=== PATIENT | female | born 1995 | race Caucasian/White ===

== ENCOUNTER 2017-03-25 08:18 | Emergency (ER) | payer BC, OTHER ==
[2017-03-25 08:58] VITALS: BP 121/78
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
--- NOTE | 2017-03-25 09:40 | CT ---
CT cervical spine Technique: Multiple axial sections were obtained from above the C1 inferiorly to the bottom of T1. Reconstructed sagittal and coronal images were reviewed. Comparison: No previous cervical spine imaging. Findings: Posterior skull base is intact. Vertebral body heights and disc spaces are maintained. Vertebral bodies and posterior arches are intact with no fracture being seen. No bony central or bony neural foraminal stenosis is seen. No abnormal subluxation is seen on the reconstructed sagittal images. Impression: 1. Nothing acute is identified on CT study of the cervical spine. Diagnostic code #1
--- NOTE | 2017-03-25 09:42 | CT ---
Head CT Technique: Multiple axial sections through the brain were obtained. Intravenous contrast was not utilized. Comparison: No previous intracranial imaging. Findings: Ventricles along with basal cisterns and sulci over the convexities appear within normal limits for the patient's age. No abnormal parenchymal densities are seen. No evidence of intracranial hemorrhage. No midline shift or mass effect is seen. Paranasal sinuses that are seen appear clear. No acute calvarial abnormality is appreciated. Impression: 1. No acute intracranial abnormality is identified on noncontrast head CT exam. Diagnostic code #1
== END 2017-03-25 10:00 | disposition home or self-care (01) ==
LOC: JD.ED 08:18
DX: S16.1XXA Strain of muscle, fascia and tendon at neck level, initial encounter (principal); S09.90XA Unspecified injury of head, initial encounter; F17.210 Nicotine dependence, cigarettes, uncomplicated; Z88.0 Allergy status to penicillin; V47.5XXA Car driver injured in collision with fixed or stationary object in traffic accident, initial encounter
CPT/HCPCS: 70450; 70450-26; 72125; 72125-26; 99283; 99284-25

== ENCOUNTER 2020-10-24 16:04 | Inpatient (IN) | payer BC, MEDICAID ==
[2020-10-24] MEDS ORDERED: Sodium Chloride 0.9% 10 ML Syringe FLUSH PRN (17:23)
[2020-10-24] MEDS ORDERED: Nalbuphine 10 MG/1 ML Vial IVPUSH PRN (17:23)
[2020-10-24] MEDS ORDERED: Acetaminophen 325 MG Tab PO PRN (17:24)
[2020-10-24] MEDS ORDERED: ceFAZolin 2 GM in Premix Bag 1 BAG IV ONE (17:24)
[2020-10-24] MEDS ORDERED: Calcium Carbonate 500 MG Tab.Chew PO PRN (17:24)
[2020-10-24] MEDS ORDERED: Ondansetron 4 MG/2 ML SDV IVPUSH PRN (17:24)
[2020-10-24] MEDS ORDERED: Oxytocin/Lactated Ringers 10 UNIT/1,000 ML BAG IV SCH ×2 (17:30→21:45)
[2020-10-24] MEDS: Lactated Ringers 1,000 ML IV SCH ×2 (17:47→20:39)
--- NOTE | 2020-10-24 19:57 | PCM.PNLD ---
Labor Progress Note - VS & Meds Vital Signs: Last Vital Signs Temp 36.6 C 10/24/20 16:23 Pulse 84 10/24/20 16:23 Resp 16 10/24/20 16:23 BP 116/59 L 10/24/20 16:23 Pulse Ox 97 10/24/20 16:23 Active Medications: Current Medications Acetaminophen (Acetaminophen 325 Mg Tab) 650 mg PO Q4H PRN PRN Reason: Pain (Mild 1-3) and fever Calcium Carbonate/Glycine (Calcium Carbonate 500 Mg Tab.Chew) 1,000 mg PO Q2H PRN PRN Reason: Indigestion Lactated Ringer's (Ringers, Lactated) 1,000 mls @ 100 mls/hr IV ASDIRECTED BHARATH Last Admin: 10/24/20 17:47 Dose: 100 mls/hr Documented by: Cefazolin Sodium/Dextrose 1 gm (/ Premix) 50 mls @ 100 mls/hr IV Q8HR BHARATH Oxytocin/Lactated Ringer's (Pitocin In Lr 10 Units/1,000 Ml) 10 unit in 1,000 mls @ 500 mls/hr IV .CONTINUOUS BHARATH Nalbuphine HCl (Nalbuphine 10 Mg/1 Ml Vial) 10 mg IVPUSH Q2H PRN PRN Reason: Pain Ondansetron HCl (Ondansetron 4 Mg/2 Ml Sdv) 4 mg IVPUSH Q4H PRN PRN Reason: Nausea/Vomiting Sodium Chloride (Sodium Chloride 0.9% 10 Ml Syringe) 10 ml FLUSH ASDIRECTED PRN PRN Reason: Keep Vein Open Discontinued Medications Cefazolin Sodium/Dextrose 2 gm (/ Premix) 50 mls @ 100 mls/hr IV ONETIME ONE Stop: 10/24/20 17:53 Last Admin: 10/24/20 17:47 Dose: 100 mls/hr Documented by: - Monitoring Strip Review: Category I - Vaginal Exam Dilation (cm): 5 Effacement (Percent): 80 Station: -2 - Labor Progress (Free Text) Labor Progress: Term labor. AROM clear fluid.
[2020-10-24] MEDS ORDERED: fentaNYL 100 MCG/2 ML SDV EPIDUR PRN (20:54)
[2020-10-24] MEDS ORDERED: diphenhydrAMINE 50 MG/ML SDV IVPUSH PRN (20:54)
[2020-10-24] MEDS ORDERED: ePHEDrine 50 MG/ML SDV IVPUSH PRN (20:54)
[2020-10-24] MEDS ORDERED: Bupivacaine/fentaNYL/NS 100 ML Bag EPIDUR PRN (20:54)
--- NOTE | 2020-10-24 21:24 | PCM.PREANE ---
Preanesthetic Assessment - Procedure Proposed Procedure: Epidural - Anesthesia/Transfusion/Family Hx Anesthesia History: Prior Anesthesia Without Reaction Family History of Anesthesia Reaction: No Transfusion History: No Prior Transfusion(s) - Review of Systems General: Fatigue Pulmonary: No Symptoms Cardiovascular: No Symptoms Gastrointestinal: Abdominal Pain (labor) Neurological: No Symptoms Other: Reports: None - Physical Assessment Vital Signs: Last Vital Signs Temp 36.6 C 10/24/20 16:23 Pulse 84 10/24/20 16:23 Resp 16 10/24/20 16:23 BP 116/59 L 10/24/20 16:23 Pulse Ox 97 10/24/20 16:23 Height: 1.7 m Weight: 121.427 kg ASA Class: 2 Mental Status: Alert & Oriented x3 Airway Class: Mallampati = 2 Dentition: Reports: Normal Dentition Thyro-Mental Finger Breadths: 3 Mouth Opening Finger Breadths: 2 ROM/Head Extension: Full Lungs: Clear to Auscultation, Normal Respiratory Effort Cardiovascular: Regular Rate, Regular Rhythm - Lab Values: Laboratory Last Values WBC 10.97 K/mm3 (3.98-10.04) H 10/24/20 17:40 RBC 4.03 M/mm3 (3.98-5.22) 10/24/20 17:40 Hgb 11.8 gm/dl (11.2-15.7) 10/24/20 17:40 Hct 35.5 % (34.1-44.9) 10/24/20 17:40 MCV 88.1 fl (79.4-94.8) 10/24/20 17:40 MCH 29.3 pg (25.6-32.2) 10/24/20 17:40 MCHC 33.2 g/dl (32.2-35.5) 10/24/20 17:40 RDW Std Deviation 41.0 fL (36.4-46.3) 10/24/20 17:40 Plt Count 257 K/mm3 (182-369) 10/24/20 17:40 MPV 11.3 fl (9.4-12.3) 10/24/20 17:40 Neut % (Auto) 69.8 % (34.0-71.1) 10/24/20 17:40 Lymph % (Auto) 21.8 % (19.3-51.7) 10/24/20 17:40 [place] % (Auto) 6.5 % (4.7-12.5) 10/24/20 17:40 Eos % (Auto) 1.3 (0.7-5.8) 10/24/20 17:40 Baso % (Auto) 0.2 % (0.1-1.2) 10/24/20 17:40 Neut # (Auto) 7.67 K/mm3 (1.56-6.13) H 10/24/20 17:40 Lymph # (Auto) 2.39 K/mm3 (1.18-3.74) 10/24/20 17:40 [place] # (Auto) 0.71 K/mm3 (0.24-0.36) H 10/24/20 17:40 Eos # (Auto) 0.14 K/mm3 (0.04-0.36) 10/24/20 17:40 Baso # (Auto) 0.02 K/mm3 (0.01-0.08) 10/24/20 17:40 SARS-CoV-2 RNA (ANASTASIA) Negative (NEGATIVE) 10/24/20 17:44 Blood Type A POSITIVE 10/24/20 17:40 Gel Antibody Screen Negative 10/24/20 17:40 - Allergies Allergies/Adverse Reactions: Allergies Allergy/AdvReac Type Severity Reaction Status Date / Time Penicillins Allergy Severe Hives Verified 10/24/20 16:21 - Anesthesia Plan Pre-Op Medication Ordered: None - Acknowledgements Anesthesia Type Planned: Epidural Pt an Appropriate Candidate for the Planned Anesthesia: Yes Alternatives and Risks of Anesthesia Discussed w Pt/Guardian: Yes Pt/Guardian Understands and Agrees with Anesthesia Plan: Yes PreAnesthesia Questionnaire HEENT History: Reports: Impaired Vision Gastrointestinal History: Reports: GERD 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 has been given medications to"kick start" her menses but they have not yet started Neurological History: Reports: Other (See Below) Other Neuro History: Pseudotumor-causes vision loss, on medication Psychiatric History: Reports: Anxiety, Depression - Past Surgical History HEENT Surgical History: Reports: Tonsillectomy Neurological Surgical History: Reports: None - SUBSTANCE USE Tobacco Use Status *Q: Former Tobacco User Tobacco Use Within Last Twelve Months: No Second Hand Smoke Exposure: Yes Recreational Drug Use History: No - HOME MEDS Home Medications: Home Meds Vits #93/Iron Fum/FA [ Formula Tablet] 1 tab PO DAILY 10/24/20 [History] acetaZOLAMIDE [Diamox] 500 mg PO DAILY 10/24/20 [History] - CURRENT (IN HOUSE) MEDS Current Meds: Current Medications Acetaminophen (Acetaminophen 325 Mg Tab) 650 mg PO Q4H PRN PRN Reason: Pain (Mild 1-3) and fever Calcium Carbonate/Glycine (Calcium Carbonate 500 Mg Tab.Chew) 1,000 mg PO Q2H PRN PRN Reason: Indigestion Diphenhydramine HCl (Diphenhydramine 50 Mg/Ml Sdv) 25 mg IVPUSH Q6H PRN PRN Reason: pruritis Ephedrine Sulfate (Ephedrine 50 Mg/Ml Sdv) 5 mg IVPUSH ASDIRECTED PRN PRN Reason: Hypotension Fentanyl (Fentanyl 100 Mcg/2 Ml Sdv) 100 mcg EPIDUR Q3H PRN PRN Reason: Pain Last Admin: 10/24/20 21:02 Dose: 100 mcg Documented by: Fentanyl/Bupivacaine HCl (Bupivacaine/Fentanyl/Ns 100 Ml Bag) 100 ml EPIDUR ASDIRECTED PRN PRN Reason: Pain Last Admin: 10/24/20 21:12 Dose: 100 ml Documented by: Lactated Ringer's (Ringers, Lactated) 1,000 mls @ 100 mls/hr IV ASDIRECTED BHARATH Last Admin: 10/24/20 20:39 Dose: 100 mls/hr Documented by: Cefazolin Sodium/Dextrose 1 gm (/ Premix) 50 mls @ 100 mls/hr IV Q8HR BHARATH Oxytocin/Lactated Ringer's (Pitocin In Lr 10 Units/1,000 Ml) 10 unit in 1,000 mls @ 500 mls/hr IV .CONTINUOUS BHARATH Nalbuphine HCl (Nalbuphine 10 Mg/1 Ml Vial) 10 mg IVPUSH Q2H PRN PRN Reason: Pain Ondansetron HCl (Ondansetron 4 Mg/2 Ml Sdv) 4 mg IVPUSH Q4H PRN PRN Reason: Nausea/Vomiting Sodium Chloride (Sodium Chloride 0.9% 10 Ml Syringe) 10 ml FLUSH ASDIRECTED PRN PRN Reason: Keep Vein Open Discontinued Medications Cefazolin Sodium/Dextrose 2 gm (/ Premix) 50 mls @ 100 mls/hr IV ONETIME ONE Stop: 10/24/20 17:53 Last Admin: 10/24/20 17:47 Dose: 100 mls/hr Documented by:
[2020-10-24] MEDS ORDERED: ceFAZolin 1 GM in Premix Bag 1 BAG IV SCH (22:00)
--- NOTE | 2020-10-25 01:27 | PCM.LDHP ---
L&D History of Present Illness - General Date of Service: 10/24/20 Admit Problem/Dx: Patient Status Order with Admit Dx/Problem 10/24/20 17:24 Patient Status [ADT] Routine Admission Diagnosis/Problem Admission Diagnosis/Problem - History of Present Illness Introduction:: 25 year old female at 38w3d presents in active labor. care in [place] initially transferred to Dr. Laya Santacruz in [place]. Called [place] and was told to use her judgement if she could travel there for delivery. Presented and was 5 cm dilated with regular painful contractions. Care complicated by question of pseudotumor cerebri initially. Was on diamox which was stopped and headaches did not persists. Recommendation was no need for medication, no contradiction to vaginal deliver or regional anesthesia. 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 has been given medications to"kick start" her menses but they have not yet started Neurological History: Reports: Other (See Below) Other Neuro History: Pseudotumor-causes vision loss, on medication Psychiatric History: Reports: Anxiety, Depression - Past Surgical History HEENT Surgical History: Reports: Tonsillectomy Neurological Surgical History: Reports: None Social & Family History - Family History Family Medical History: No Pertinent Family History - Tobacco Use Tobacco Use Status *Q: Former Tobacco User Years of Tobacco use: 4 Packs/Tins Daily: 0.5 Used Tobacco, but Quit: Yes Month/Year Tobacco Last Used: 01/2020 Second Hand Smoke Exposure: Yes - Caffeine Use Caffeine Use: Reports: Coffee - Recreational Drug Use Recreational Drug Use: No H&P Review of Systems - Review of Systems: Review Of Systems: See Below General: Reports: No Symptoms HEENT: Reports: No Symptoms Pulmonary: Reports: No Symptoms Cardiovascular: Reports: No Symptoms Gastrointestinal: Reports: No Symptoms Genitourinary: Reports: No Symptoms Musculoskeletal: Reports: No Symptoms Skin: Reports: No Symptoms Psychiatric: Reports: No Symptoms Neurological: Reports: No Symptoms Hematologic/Lymphatic: Reports: No Symptoms Immunologic: Reports: No Symptoms L&D Exam - Exam Exam: See Below - Vital Signs Vital Signs: Last Vital Signs Temp 36.6 C 10/24/20 16:23 Pulse 84 10/24/20 16:23 Resp 16 10/24/20 16:23 BP 116/59 L 10/24/20 16:23 Pulse Ox 97 10/24/20 16:23 Weight: 121.427 kg - OB Specific Contraction Intensity: Moderate Movement: Active Heart Tones: Present Heart Rate (FHR) Variability: Moderate (6-25 bmp) Presentation: Vertex - Medina Score Medina Score Cervix Position: Anterior Medina Score Consistency: Soft Medina Score Effacement: 51-70% Medina Score Dilation: > 5 cm Medina Score 's Station: -2 Medina Score Total: 10 - Exam General: Alert, Oriented HEENT: PERRLA, Conjunctiva Clear, EACs Clear, EOMI, Hearing Intact, Mucosa Moist & [place], Nares Patent, Normal Nasal Septum, Posterior Pharynx Clear, TMs Clear Neck: Supple, Trachea Midline Lungs: Clear to Auscultation, Normal Respiratory Effort Cardiovascular: Regular Rate, Regular Rhythm GI/Abdominal Exam: Normal Bowel Sounds, Soft, Non-Tender, No Organomegaly, No Distention, No Abnormal Bruit, No Mass, Pelvis Stable Back Exam: Normal Inspection, Full Range of Motion Extremities: Normal Inspection, Normal Range of Motion, Non-Tender, No Pedal Edema, Normal Capillary Refill Neurological: Reflexes Equal Bilateral Psychiatric: Alert, Normal Affect, Normal Mood - Patient Data Lab Results Last 24 hrs: Laboratory Results - last 24 hr 10/24/20 10/24/20 10/24/20 Range/Units 17:40 17:40 17:40 WBC 10.97 H (3.98-10.04) K/mm3 RBC 4.03 (3.98-5.22) M/mm3 Hgb 11.8 (11.2-15.7) gm/dl Hct 35.5 (34.1-44.9) % MCV 88.1 (79.4-94.8) fl MCH 29.3 (25.6-32.2) pg MCHC 33.2 (32.2-35.5) g/dl RDW Std Deviation 41.0 (36.4-46.3) fL Plt Count 257 (182-369) K/mm3 MPV 11.3 (9.4-12.3) fl Neut % (Auto) 69.8 (34.0-71.1) % Lymph % (Auto) 21.8 (19.3-51.7) % [place] % (Auto) 6.5 (4.7-12.5) % Eos % (Auto) 1.3 (0.7-5.8) Baso % (Auto) 0.2 (0.1-1.2) % Neut # (Auto) 7.67 H (1.56-6.13) K/mm3 Lymph # (Auto) 2.39 (1.18-3.74) K/mm3 [place] # (Auto) 0.71 H (0.24-0.36) K/mm3 Eos # (Auto) 0.14 (0.04-0.36) K/mm3 Baso # (Auto) 0.02 (0.01-0.08) K/mm3 RPR Non-reactive (NONREACTIVE) SARS-CoV-2 RNA (ANASTASIA) (NEGATIVE) Blood Type A POSITIVE Gel Antibody Screen Negative 10/24/20 Range/Units 17:44 WBC (3.98-10.04) K/mm3 RBC (3.98-5.22) M/mm3 Hgb (11.2-15.7) gm/dl Hct (34.1-44.9) % MCV (79.4-94.8) fl MCH (25.6-32.2) pg MCHC (32.2-35.5) g/dl RDW Std Deviation (36.4-46.3) fL Plt Count (182-369) K/mm3 MPV (9.4-12.3) fl Neut % (Auto) (34.0-71.1) % Lymph % (Auto) (19.3-51.7) % [place] % (Auto) (4.7-12.5) % Eos % (Auto) (0.7-5.8) Baso % (Auto) (0.1-1.2) % Neut # (Auto) (1.56-6.13) K/mm3 Lymph # (Auto) (1.18-3.74) K/mm3 [place] # (Auto) (0.24-0.36) K/mm3 Eos # (Auto) (0.04-0.36) K/mm3 Baso # (Auto) (0.01-0.08) K/mm3 RPR (NONREACTIVE) SARS-CoV-2 RNA (ANASTASIA) Negative (NEGATIVE) Blood Type Gel Antibody Screen Result Diagrams: 10/24/20 17:40 Problem List Initiated/Reviewed/Updated: Yes Orders Last 24hrs: Active Orders 24 hr Category Date Time Status Patient Status [ADT] Routine ADT 10/24/20 17:24 Active Activity as Tolerated [RC] PFP Care 10/24/20 17:23 Active Communication Order [RC] ASDIRECTED Care 10/24/20 17:23 Active Communication Order [RC] ASDIRECTED Care 10/24/20 20:55 Active Cooling Warming Measures [RC] ASDIRECTED Care 10/24/20 20:55 Active Heart Tones [RC] ASDIRECTED Care 10/24/20 17:24 Active Non Stress Test [RC] PER UNIT ROUTINE Care 10/24/20 16:23 Active Notify Provider [RC] ASDIRECTED Care 10/24/20 20:54 Active Notify Provider [RC] ASDIRECTED Care 10/24/20 20:55 Active Notify Provider [RC] PFP Care 10/24/20 17:23 Active Notify Provider [RC] PRN Care 10/24/20 17:23 Active Oxygen Therapy [RC] ASDIRECTED Care 10/24/20 20:55 Active Peripheral IV Care [RC] . DIRECTED Care 10/24/20 17:24 Active Pulse Oximetry [RC] ASDIRECTED Care 10/24/20 20:55 Active Vital Signs [RC] PER UNIT ROUTINE Care 10/24/20 16:23 Active Vital Signs [RC] PRN Care 10/24/20 20:54 Active Regular Diet [DIET] Diet 10/24/20 Dinner Active Acetaminophen [TylenoL] Med 10/24/20 17:24 Active 650 mg PO Q4H PRN Bupivacaine/fentaNYL/NS [fentaNYL/Bupivacaine/NS 2 MCG- Med 10/24/20 20:54 Active 0.125% 100 ML] 100 ml EPIDUR ASDIRECTED PRN Calcium Carbonate [Tums] Med 10/24/20 17:24 Active 1,000 mg PO Q2H PRN Lactated Ringers [Ringers, Lactated] 1,000 ml Med 10/24/20 17:30 Active IV ASDIRECTED Nalbuphine [Nubain] Med 10/24/20 17:23 Active 10 mg IVPUSH Q2H PRN Ondansetron [Zofran] Med 10/24/20 17:24 Active 4 mg IVPUSH Q4H PRN Oxytocin/Lactated Ringers [Pitocin in LR 10 Units/1,000 Med 10/24/20 17:30 Active ML] 10 unit in 1,000 ml IV .CONTINUOUS Oxytocin/Lactated Ringers [Pitocin in LR 10 Units/1,000 Med 10/24/20 21:45 Active ML] 10 unit in 1,000 ml IV TITRATE Sodium Chloride 0.9% [Saline Flush] Med 10/24/20 17:23 Active 10 ml FLUSH ASDIRECTED PRN ceFAZolin [Ancef 1 GM/50 ML] 1 gm Med 10/24/20 22:00 Active Premix Bag 1 bag IV Q8HR diphenhydrAMINE [Benadryl] Med 10/24/20 20:54 Active 25 mg IVPUSH Q6H PRN ePHEDrine [ePHEDrine sulfate] Med 10/24/20 20:54 Active 5 mg IVPUSH ASDIRECTED PRN fentaNYL [Sublimaze] Med 10/24/20 20:54 Active 100 mcg EPIDUR Q3H PRN Electronic Heart Tones Ext w TOCO [WOMSER] Oth 10/24/20 17:23 Ordered Routine Electronic Heart Tones Internal [WOMSER] Per Unit Ot 10/24/20 17:23 Ordered Routine Peripheral IV Insertion Adult [OM.PC] Routine Oth 10/24/20 17:23 Ordered Resuscitation Status Routine Resus Stat 10/24/20 16:23 Ordered Medication Orders Acetaminophen (Acetaminophen 325 Mg Tab) 650 mg PO Q4H PRN PRN Reason: Pain (Mild 1-3) and fever Calcium Carbonate/Glycine (Calcium Carbonate 500 Mg Tab.Chew) 1,000 mg PO Q2H PRN PRN Reason: Indigestion Diphenhydramine HCl (Diphenhydramine 50 Mg/Ml Sdv) 25 mg IVPUSH Q6H PRN PRN Reason: pruritis Ephedrine Sulfate (Ephedrine 50 Mg/Ml Sdv) 5 mg IVPUSH ASDIRECTED PRN PRN Reason: Hypotension Fentanyl (Fentanyl 100 Mcg/2 Ml Sdv) 100 mcg EPIDUR Q3H PRN PRN Reason: Pain Last Admin: 10/24/20 21:02 Dose: 100 mcg Documented by: JANNETH Fentanyl/Bupivacaine HCl (Bupivacaine/Fentanyl/Ns 100 Ml Bag) 100 ml EPIDUR ASDIRECTED PRN PRN Reason: Pain Last Admin: 10/24/20 21:12 Dose: 100 ml Documented by: JANNETH Lactated Ringer's (Ringers, Lactated) 1,000 mls @ 100 mls/hr IV ASDIRECTED BHARATH Last Admin: 10/24/20 20:39 Dose: 100 mls/hr Documented by: Infusion: 10/24/20 20:39 Dose: 100 mls/hr Documented by: Admin: 10/24/20 17:47 Dose: 100 mls/hr Documented by: JL Cefazolin Sodium/Dextrose 1 gm (/ Premix) 50 mls @ 100 mls/hr IV Q8HR BHARATH Last Admin: 10/24/20 21:56 Dose: 100 mls/hr Documented by: JANNETH Oxytocin/Lactated Ringer's (Pitocin In Lr 10 Units/1,000 Ml) 10 unit in 1,000 mls @ 500 mls/hr IV .CONTINUOUS BHARATH Oxytocin/Lactated Ringer's (Pitocin In Lr 10 Units/1,000 Ml) 10 unit in 1,000 mls @ 12 mls/hr IV TITRATE BHARATH; Protocol Last Titration: 10/24/20 23:30 Dose: 8 munits/min, 48 mls/hr Documented by: Titration: 10/24/20 23:01 Dose: 6 munits/min, 36 mls/hr Documented by: Titration: 10/24/20 22:31 Dose: 4 munits/min, 24 mls/hr Documented by: Admin: 10/24/20 21:58 Dose: 2 munits/min, 12 mls/hr Documented by: JANNETH Nalbuphine HCl (Nalbuphine 10 Mg/1 Ml Vial) 10 mg IVPUSH Q2H PRN PRN Reason: Pain Ondansetron HCl (Ondansetron 4 Mg/2 Ml Sdv) 4 mg IVPUSH Q4H PRN PRN Reason: Nausea/Vomiting Sodium Chloride (Sodium Chloride 0.9% 10 Ml Syringe) 10 ml FLUSH ASDIRECTED PRN PRN Reason: Keep Vein Open Assessment/Plan Comment:: Term labor. GBS positive. 1. Anesthesia per patient request. 2. COVID screen, cbc, labs 3. Monitor 4. Anticipate
[2020-10-25] MEDS ORDERED: Witch Hazel Medicated Pads 40/Jar TOP PRN (01:56)
[2020-10-25] MEDS ORDERED: Benzocaine/Menthol 20%-0.5% Spray 56 GM Canister TOP PRN (01:56)
[2020-10-25] MEDS: Ibuprofen 600 MG Tab PO PRN ×3 (02:54→19:48)
--- NOTE | 2020-10-25 08:28 | PCM48HPAN ---
Post Anesthesia Note - EVALUATION WITHIN 48HRS OF ANESTHETIC Vital Signs in Normal Range: Yes Patient Participated in Evaluation: Yes Respiratory Function Stable: Yes Airway Patent: Yes Cardiovascular Function Stable: Yes Hydration Status Stable: Yes Pain Control Satisfactory: Yes Nausea and Vomiting Control Satisfactory: Yes Mental Status Recovered: Yes Vital Signs: Last Vital Signs Temp 36.6 C 10/24/20 16:23 Pulse 84 10/24/20 16:23 Resp 16 10/24/20 16:23 BP 116/59 L 10/24/20 16:23 Pulse Ox 97 10/24/20 16:23
[2020-10-25] MEDS ORDERED: Bupivacaine 0.25% 10 ML SDV ONE (14:00)
[2020-10-25] MEDS ORDERED: ePHEDrine 50 MG/ML SDV ONE (14:00)
[2020-10-26] MEDS: Ibuprofen 600 MG Tab PO PRN ×2 (03:43→10:29)
--- NOTE | 2020-10-26 09:21 | PCM.SN.2 ---
- Free Text/Narrative Note: Post Progress Note PPD #1 Subjective: Doing well overall. Ambulating without difficulty. Lochia minimal. Voiding without difficulty. Tolerating regular diet without nausea or vomiting. Pain controlled with oral medications. Breast-feeding with minimal difficulty. Objective: Vitals: Vital Signs - 24 hr 10/25/20 10/25/20 10/25/20 09:46 15:46 19:40 Temperature 36.1 C 36.8 C Pulse, 75 84 86 Peripheral Respiratory 16 14 14 Rate Blood Pressure 107/42 L 109/54 L 125/63 O2 Sat by Pulse 98 96 98 Oximetry 10/26/20 03:08 Temperature 36.6 C Pulse, 70 Peripheral Respiratory 12 Rate Blood Pressure 127/89 O2 Sat by Pulse 97 Oximetry Physical Exam General: Alert and oriented, no acute distress Lungs: Clear to auscultation bilaterally Heart: Regular rate and rhythm Abdomen: Soft, minimal appropriate tenderness, non-distended, fundus midline, nontender, and at the umbilicus Extremities: No edema in bilateral lower extremities, no calf tenderness bilaterally ASSESSMENT: 25-year-old female -0-0-3 s/p normal vaginal delivery PPD #1, complicated by pseudotumor cerebri and GBS positive status and received 2 doses of antibiotics prior to delivery PLAN: Doing well Breast-feeding with minimal difficulty. Assist as needed Lochia minimal. Continue to monitor for appropriate lochia. Continue routine care Anticipate discharge home today Adin Lisa MD 9:20 AM 10/26/2020
--- NOTE | 2020-10-26 09:29 | PCM.DCSUM1 ---
Discharge Summary - Hospital Course Free Text/Narrative:: 25 year old female at 38w3d presents in active labor. care in [place] initially transferred to Dr. Laya Santacruz in [place]. Called [place] and was told to use her judgement if she could travel there for delivery. Presented and was 5 cm dilated with regular painful contractions. Care complicated by question of pseudotumor cerebri initially. Was on diamox which was stopped and headaches did not persists. Recommendation was no need for medication, no contradiction to vaginal deliver or regional anesthesia. Diagnosis: Stroke: No - Discharge Data Discharge Date: 10/26/20 Discharge Disposition: Home, Self-Care 01 Condition: Good - Referral to Home Health Primary Care Physician: Randa Reyna MD - Discharge Diagnosis/Problem(s) (1) Vaginal delivery SNOMED Code(s): 498290989 ICD Code: O80 - ENCOUNTER FOR FULL-TERM UNCOMPLICATED DELIVERY Status: Acute Current Visit: Yes (2) First degree perineal laceration during delivery SNOMED Code(s): 410336827 ICD Code: O70.0 - FIRST DEGREE PERINEAL LACERATION DURING DELIVERY Status: Acute Current Visit: Yes (3) 38 weeks gestation of SNOMED Code(s): 61098067 ICD Code: Z3A.38 - 38 WEEKS GESTATION OF Status: Acute Current Visit: Yes (4) GBS (group B Streptococcus carrier), +RV culture, currently SNOMED Code(s): 1129712231840, 557414378, 7736593922611 ICD Code: O99.820 - STREPTOCOCCUS B CARRIER STATE COMPLICATING Status: Acute Current Visit: Yes (5) Pseudotumor cerebri SNOMED Code(s): 35234169 ICD Code: G93.2 - BENIGN INTRACRANIAL HYPERTENSION Status: Acute Current Visit: Yes - Patient Summary/Data Complications: None Consults: None Hospital Course: Yumiko Kidd was admitted for spontaneous labor. On admission her cervix was dilated to 3-4 cm. She was GBS positive and was started on Ancef for GBS prophylaxis. She received 2 doses of Ancef prior to delivery. She was given pitocin for augmentation. She was given an epidural for anesthesia. She had artificial rupture of membranes with clear fluid. She progressed to complete and began pushing. On 10/25/2020 she had a normal vaginal delivery of a live male infant at 01:09. Apgars of 8 and 9. Weight of 3080 g (6 pounds 12.6 ounces). Her course was uneventful. Her pain was well controlled and she had minimal lochia. She was ambulating, tolerating a regular diet and voiding elsa lly. She was breast-feeding with minimal difficulty. She was afebrile and her hematocrit was 35.5 on admission. She desired to be discharged home on the morning of PPD #1. Her blood type is A+. - Patient Instructions Diet: Regular Diet as Tolerated Activity: Apply Ice, As Tolerated Activity, Other: Nothing in the vagina for 6 weeks Driving: May Drive Today Showering/Bathing: May Shower Notify Provider of: Fever, Increased Pain, Swelling and Redness, Drainage, Nausea and/or Vomiting Other/Special Instructions: Please contact your physician's office if you have heavy vaginal bleeding enough to soak a pad in less than an hour for several hours. Monitor for any signs of an infection in the breasts with severe pain or redness of the breast. - Discharge Plan *PRESCRIPTION DRUG MONITORING PROGRAM REVIEWED*: Not Applicable *COPY OF PRESCRIPTION DRUG MONITORING REPORT IN PATIENT LILLIAN: Not Applicable Home Medications: Home Meds Vits #93/Iron Fum/FA [ Formula Tablet] 1 tab PO DAILY 10/24/20 [History] acetaZOLAMIDE [Diamox] 500 mg PO DAILY 10/24/20 [History] Benzocaine/Menthol [Dermoplast Pain Relief [place]] 1 spray TOP ASDIRECTED PRN canister 10/26/20 [Rx] Ibuprofen [Motrin] 600 mg PO Q6H PRN tablet 10/26/20 [Rx] witch Bebeto [Tucks] 1 pad TOP ASDIRECTED PRN pad 10/26/20 [Rx] Patient Handouts: Care of a Perineal Tear, Care After Vaginal Delivery Referrals: Randa Reyna MD [Primary Care Provider] - (2 weeks (Or Dr[address] Laya Santacruz if patient prefers)) - Discharge Summary/Plan Comment DC Time >30 min.: No - Patient Data Vitals - Most Recent: Last Vital Signs Temp 36.8 C 10/26/20 08:17 Pulse 66 10/26/20 08:17 Resp 16 10/26/20 08:17 BP 119/56 L 10/26/20 08:17 Pulse Ox 97 10/26/20 08:17 Weight - Most Recent: 121.427 kg I&O - Last 24 hours: Intake & Output 10/25/20 10/26/20 10/26/20 22:59 06:59 14:59 Intake Total 240 Balance 240 Med Orders - Current: Current Medications Benzocaine/Menthol (Benzocaine/Menthol 20%-0.5% [place] 56 Gm Canister) 0 gm TOP ASDIRECTED PRN PRN Reason: Perineal Comfort Measure Last Admin: 10/25/20 02:53 Dose: 1 can Documented by: Ibuprofen (Ibuprofen 600 Mg Tab) 600 mg PO Q6H PRN PRN Reason: Mild pain or fever Last Admin: 10/26/20 03:43 Dose: 600 mg Documented by: Alonzo Hays (Alonzo Hays Medicated Pads 40/Jar) 1 pad TOP ASDIRECTED PRN PRN Reason: Perineal Comfort Measure Last Admin: 10/25/20 02:53 Dose: 1 tub Documented by: Discontinued Medications Acetaminophen (Acetaminophen 325 Mg Tab) 650 mg PO Q4H PRN PRN Reason: Pain (Mild 1-3) and fever Bupivacaine HCl (Bupivacaine 0.25% 10 Ml Sdv) 10 ml .ROUTE .STK-MED ONE Stop: 10/25/20 14:01 Calcium Carbonate/Glycine (Calcium Carbonate 500 Mg Tab.Chew) 1,000 mg PO Q2H PRN PRN Reason: Indigestion Diphenhydramine HCl (Diphenhydramine 50 Mg/Ml Sdv) 25 mg IVPUSH Q6H PRN PRN Reason: pruritis Ephedrine Sulfate (Ephedrine 50 Mg/Ml Sdv) 5 mg IVPUSH ASDIRECTED PRN PRN Reason: Hypotension Ephedrine Sulfate (Ephedrine 50 Mg/Ml Sdv) 50 mg .ROUTE .STK-MED ONE Stop: 10/25/20 14:01 Fentanyl (Fentanyl 100 Mcg/2 Ml Sdv) 100 mcg EPIDUR Q3H PRN PRN Reason: Pain Last Admin: 10/24/20 21:02 Dose: 100 mcg Documented by: Fentanyl/Bupivacaine HCl (Bupivacaine/Fentanyl/Ns 100 Ml Bag) 100 ml EPIDUR ASDIRECTED PRN PRN Reason: Pain Last Admin: 10/24/20 21:12 Dose: 100 ml Documented by: Lactated Ringer's (Ringers, Lactated) 1,000 mls @ 100 mls/hr IV ASDIRECTED BHARATH Last Admin: 10/24/20 20:39 Dose: 100 mls/hr Documented by: Cefazolin Sodium/Dextrose 2 gm (/ Premix) 50 mls @ 100 mls/hr IV ONETIME ONE Stop: 10/24/20 17:53 Last Admin: 10/24/20 17:47 Dose: 100 mls/hr Documented by: Cefazolin Sodium/Dextrose 1 gm (/ Premix) 50 mls @ 100 mls/hr IV Q8HR BHARATH Last Admin: 10/24/20 21:56 Dose: 100 mls/hr Documented by: Oxytocin/Lactated Ringer's (Pitocin In Lr 10 Units/1,000 Ml) 10 unit in 1,000 mls @ 500 mls/hr IV .CONTINUOUS BHARATH Oxytocin/Lactated Ringer's (Pitocin In Lr 10 Units/1,000 Ml) 10 unit in 1,000 mls @ 12 mls/hr IV TITRATE BHARATH; Protocol Last Titration: 10/24/20 23:30 Dose: 8 munits/min, 48 mls/hr Documented by: Nalbuphine HCl (Nalbuphine 10 Mg/1 Ml Vial) 10 mg IVPUSH Q2H PRN PRN Reason: Pain Ondansetron HCl (Ondansetron 4 Mg/2 Ml Sdv) 4 mg IVPUSH Q4H PRN PRN Reason: Nausea/Vomiting Sodium Chloride (Sodium Chloride 0.9% 10 Ml Syringe) 10 ml FLUSH ASDIRECTED PRN PRN Reason: Keep Vein Open
[2020-10-27 05:56] VITALS: PULSE 69
[2020-10-27 09:12] VITALS: BP 98/58
--- NOTE | 2020-10-27 09:36 | PCM.SN.2 ---
- Free Text/Narrative Note: Post Progress Note PPD #2 Subjective: Doing well overall. Ambulating without difficulty. Lochia minimal. Voiding without difficulty. Tolerating regular diet without nausea or vomiting. Pain controlled with oral medications. Patient reports that she had difficulty with breast-feeding and is now doing bottlefeeding for the infant. She is uncertain if she is going to do pumping breastmilk for the as she is having some breast milk production. Objective: Vitals: Vital Signs - 24 hr 10/26/20 10/26/20 10/27/20 14:41 21:11 04:30 Temperature 36.5 C 37.4 C 36.9 C Pulse, 72 85 69 Peripheral Respiratory 20 14 14 Rate Blood Pressure 117/84 117/48 L 100/51 L O2 Sat by Pulse 95 98 97 Oximetry 10/27/20 08:56 Temperature 36.7 C Pulse, 69 Peripheral Respiratory 14 Rate Blood Pressure 98/58 L O2 Sat by Pulse 97 Oximetry Physical Exam General: Alert and oriented, no acute distress Lungs: Clear to auscultation bilaterally Heart: Regular rate and rhythm Abdomen: Soft, minimal appropriate tenderness, non-distended, fundus midline, nontender, and 2 fingerbreadths below the umbilicus Extremities: Trace edema in bilateral lower extremities to mid shins, no calf tenderness bilaterally ASSESSMENT: 25-year-old female -0-0-3 s/p normal vaginal delivery PPD #2, complicated by pseudotumor cerebri and GBS positive status and received 2 doses of antibiotics prior to delivery PLAN: Doing well Bottlefeeding with minimal difficulty. Assist as needed Lochia minimal. Continue to monitor for appropriate lochia. Continue routine care Discharge home today Adin Lisa MD 9:34 AM 10/27/2020
--- NOTE | 2020-10-27 09:36 | PCM.DCSUM1 ---
Discharge Summary - Hospital Course Free Text/Narrative:: 25 year old female at 38w3d presents in active labor. care in [place] initially transferred to Dr. Laya Santacruz in [place]. Called [place] and was told to use her judgement if she could travel there for delivery. Presented and was 5 cm dilated with regular painful contractions. Care complicated by question of pseudotumor cerebri initially. Was on diamox which was stopped and headaches did not persists. Recommendation was no need for medication, no contradiction to vaginal deliver or regional anesthesia. Diagnosis: Stroke: No - Discharge Data Discharge Date: 10/27/20 Discharge Disposition: Home, Self-Care 01 Condition: Good - Referral to Home Health Primary Care Physician: Randa Reyna MD - Discharge Diagnosis/Problem(s) (1) Vaginal delivery SNOMED Code(s): 542411829 ICD Code: O80 - ENCOUNTER FOR FULL-TERM UNCOMPLICATED DELIVERY Status: Acute Current Visit: Yes (2) First degree perineal laceration during delivery SNOMED Code(s): 342681191 ICD Code: O70.0 - FIRST DEGREE PERINEAL LACERATION DURING DELIVERY Status: Acute Current Visit: Yes (3) 38 weeks gestation of SNOMED Code(s): 08276127 ICD Code: Z3A.38 - 38 WEEKS GESTATION OF Status: Acute Current Visit: Yes (4) GBS (group B Streptococcus carrier), +RV culture, currently SNOMED Code(s): 6896855939251, 905713417, [id number] ICD Code: O99.820 - STREPTOCOCCUS B CARRIER STATE COMPLICATING Status: Acute Current Visit: Yes (5) Pseudotumor cerebri SNOMED Code(s): 76692406 ICD Code: G93.2 - BENIGN INTRACRANIAL HYPERTENSION Status: Acute Current Visit: Yes - Patient Summary/Data Complications: None Consults: None Hospital Course: Yumiko Kidd was admitted for spontaneous labor. On admission her cervix was dilated to 3-4 cm. She was GBS positive and was started on Ancef for GBS prophylaxis. She received 2 doses of Ancef prior to delivery. She was given pitocin for augmentation. She was given an epidural for anesthesia. She had artificial rupture of membranes with clear fluid. She progressed to complete and began pushing. On 10/25/2020 she had a normal vaginal delivery of a live male infant at 01:09. Apgars of 8 and 9. Weight of 3080 g (6 pounds 12.6 ounces). Her course was uneventful. Her pain was well controlled and she had minimal lochia. She was ambulating, tolerating a regular diet and voiding elsa lly. She was breast-feeding with minimal difficulty. She was afebrile and her hematocrit was 35.5 on admission. She desired to be discharged home on the morning of PPD #1 initially but was not discharged and so she desired to be discharged home in the morning of PPD #2. Her blood type is A+. - Patient Instructions Diet: Regular Diet as Tolerated Activity: Apply Ice, As Tolerated Activity, Other: Nothing in the vagina for 6 weeks Driving: May Drive Today Showering/Bathing: May Shower Notify Provider of: Fever, Increased Pain, Swelling and Redness, Drainage, Nausea and/or Vomiting Other/Special Instructions: Please contact your physician's office if you have heavy vaginal bleeding enough to soak a pad in less than an hour for several hours. Monitor for any signs of an infection in the breasts with severe pain or redness of the breast. - Discharge Plan *PRESCRIPTION DRUG MONITORING PROGRAM REVIEWED*: Not Applicable *COPY OF PRESCRIPTION DRUG MONITORING REPORT IN PATIENT LILLIAN: Not Applicable Home Medications: Home Meds Vits #93/Iron Fum/FA [ Formula Tablet] 1 tab PO DAILY 10/24/20 [History] acetaZOLAMIDE [Diamox] 500 mg PO DAILY 10/24/20 [History] Benzocaine/Menthol [Dermoplast Pain Relief [place]] 1 spray TOP ASDIRECTED PRN canister 10/26/20 [Rx] Ibuprofen [Motrin] 600 mg PO Q6H PRN tablet 10/26/20 [Rx] witch Lis [Tucks] 1 pad TOP ASDIRECTED PRN pad 10/26/20 [Rx] Patient Handouts: Care of a Perineal Tear, Care After Vaginal [place] Referrals: Randa Reyna MD [Primary Care Provider] - (2 weeks (Or Dr[address] Laya Santacruz if patient prefers)) - Discharge Summary/Plan Comment DC Time >30 min.: No - Patient Data Vitals - Most Recent: Last Vital Signs Temp 36.7 C 10/27/20 08:56 Pulse 69 10/27/20 08:56 Resp 14 10/27/20 08:56 BP 98/58 L 10/27/20 08:56 Pulse Ox 97 10/27/20 08:56 Weight - Most Recent: 121.427 kg I&O - Last 24 hours: Intake & Output 10/26/20 10/27/20 10/27/20 22:59 06:59 14:59 Intake Total 120 Balance 120 Med Orders - Current: Current Medications Benzocaine/Menthol (Benzocaine/Menthol 20%-0.5% [place] 56 Gm Canister) 0 gm TOP ASDIRECTED PRN PRN Reason: Perineal Comfort Measure Last Admin: 10/25/20 02:53 Dose: 1 can Documented by: Ibuprofen (Ibuprofen 600 Mg Tab) 600 mg PO Q6H PRN PRN Reason: Mild pain or fever Last Admin: 10/26/20 10:29 Dose: 600 mg Documented by: Alonzo Hays (Witch Lis Medicated Pads 40/Jar) 1 pad TOP ASDIRECTED PRN PRN Reason: Perineal Comfort Measure Last Admin: 10/25/20 02:53 Dose: 1 tub Documented by: Discontinued Medications Acetaminophen (Acetaminophen 325 Mg Tab) 650 mg PO Q4H PRN PRN Reason: Pain (Mild 1-3) and fever Bupivacaine HCl (Bupivacaine 0.25% 10 Ml Sdv) 10 ml .ROUTE .STK-MED ONE Stop: 10/25/20 14:01 Calcium Carbonate/Glycine (Calcium Carbonate 500 Mg Tab.Chew) 1,000 mg PO Q2H PRN PRN Reason: Indigestion Diphenhydramine HCl (Diphenhydramine 50 Mg/Ml Sdv) 25 mg IVPUSH Q6H PRN PRN Reason: pruritis Ephedrine Sulfate (Ephedrine 50 Mg/Ml Sdv) 5 mg IVPUSH ASDIRECTED PRN PRN Reason: Hypotension Ephedrine Sulfate (Ephedrine 50 Mg/Ml Sdv) 50 mg .ROUTE .STK-MED ONE Stop: 10/25/20 14:01 Fentanyl (Fentanyl 100 Mcg/2 Ml Sdv) 100 mcg EPIDUR Q3H PRN PRN Reason: Pain Last Admin: 10/24/20 21:02 Dose: 100 mcg Documented by: Fentanyl/Bupivacaine HCl (Bupivacaine/Fentanyl/Ns 100 Ml Bag) 100 ml EPIDUR ASDIRECTED PRN PRN Reason: Pain Last Admin: 10/24/20 21:12 Dose: 100 ml Documented by: Lactated Ringer's (Ringers, Lactated) 1,000 mls @ 100 mls/hr IV ASDIRECTED BHARATH Last Admin: 10/24/20 20:39 Dose: 100 mls/hr Documented by: Cefazolin Sodium/Dextrose 2 gm (/ Premix) 50 mls @ 100 mls/hr IV ONETIME ONE Stop: 10/24/20 17:53 Last Admin: 10/24/20 17:47 Dose: 100 mls/hr Documented by: Cefazolin Sodium/Dextrose 1 gm (/ Premix) 50 mls @ 100 mls/hr IV Q8HR BHARATH Last Admin: 10/24/20 21:56 Dose: 100 mls/hr Documented by: Oxytocin/Lactated Ringer's (Pitocin In Lr 10 Units/1,000 Ml) 10 unit in 1,000 mls @ 500 mls/hr IV .CONTINUOUS BHARATH Oxytocin/Lactated Ringer's (Pitocin In Lr 10 Units/1,000 Ml) 10 unit in 1,000 mls @ 12 mls/hr IV TITRATE BHARATH; Protocol Last Titration: 10/24/20 23:30 Dose: 8 munits/min, 48 mls/hr Documented by: Nalbuphine HCl (Nalbuphine 10 Mg/1 Ml Vial) 10 mg IVPUSH Q2H PRN PRN Reason: Pain Ondansetron HCl (Ondansetron 4 Mg/2 Ml Sdv) 4 mg IVPUSH Q4H PRN PRN Reason: Nausea/Vomiting Sodium Chloride (Sodium Chloride 0.9% 10 Ml Syringe) 10 ml FLUSH ASDIRECTED PRN PRN Reason: Keep Vein Open
== END 2020-10-27 10:22 | disposition home or self-care (01) | DRG 560 ==
LOC: JD.OBCHECK 16:04 → JD.OB 16:04 → JD.OBCHECK 17:24 → JD.OB 17:24 → OBSVTOIN 10-25 01:09 → JD.OB 10-25 01:10
PROVIDERS: ADMIT Obstetrics & Gynecology; ATTEND Obstetrics & Gynecology
PROC: 10E0XZZ Delivery of Products of Conception, External Approach (ICD-10-PCS; principal; 2020-10-25)
PROC: 10907ZC Drainage of Amniotic Fluid, Therapeutic from Products of Conception, Via Natural or Artificial Opening (ICD-10-PCS; 2020-10-25)
PROC: 3E0R3BZ Introduction of Anesthetic Agent into Spinal Canal, Percutaneous Approach (ICD-10-PCS; 2020-10-25)
DX: O99.824 Streptococcus B carrier state complicating childbirth (principal); Z3A.38 38 weeks gestation of pregnancy; Z37.0 Single live birth; O70.0 First degree perineal laceration during delivery; Z79.899 Other long term (current) drug therapy; Z88.0 Allergy status to penicillin; Z90.89 Acquired absence of other organs; Z87.891 Personal history of nicotine dependence; G93.2 Benign intracranial hypertension; O75.89 Other specified complications of labor and delivery; Z20.822 Contact with and (suspected) exposure to COVID-19
CPT/HCPCS: 01967; 36415; 51702; 59025; 59409; 85025; 86592; 86850; 86900; 86901; A9270-GY; J0690; J2590; J3010; J3490; J7120; U0002

== ENCOUNTER 2022-11-11 09:25 | Emergency (ER) | payer BC, MEDICAID ==
[2022-11-11] MEDS ORDERED: Sodium Chloride 0.9% 1,000 ML IV STA (10:04)
[2022-11-11] MEDS ORDERED: Sodium Chloride 0.9% 10 ML Syringe FLUSH PRN (10:04)
[2022-11-11] MEDS ORDERED: Ketorolac 30 MG/ML SDV IVPUSH ONE (10:05)
[2022-11-11] MEDS ORDERED: HYDROmorphone 0.5 MG/0.5 ML Syringe IVPUSH ONE (10:05)
[2022-11-11 10:48] LABS: BASOPHILS ABSOLUTE AUTO 0.02 K/mm3 (0.01-0.08); BASOPHILS PERCENT AUTO 0.2 % (0.1-1.2); EOSINOPHILS PERCENT AUTO 2.3 (0.7-5.8); HEMATOCRIT 39.3 % (34.1-44.9); HEMOGLOBIN 12.8 gm/dl (11.2-15.7); IMMATURE GRAN ABSOLUTE AUTO 0.02 K/mm3 (0.00-0.10); IMMATURE GRAN PERCENT AUTO 0.2 % (<=1.0); LYMPHOCYTES ABSOLUTE AUTO 2.81 K/mm3 (1.18-3.74); LYMPHOCYTES PERCENT AUTO 31.6 % (19.3-51.7); MEAN CORPUSCULAR HEMOGLOBIN 28.9 pg (25.6-32.2); MEAN CORPUSCULAR HGB CONC 32.6 g/dl (32.2-35.5); MEAN CORPUSCULAR VOLUME 88.7 fl (79.4-94.8); MEAN PLATELET VOLUME 10.9 fl (9.4-12.3); MONOCYTES ABSOLUTE AUTO 0.67 K/mm3 (0.24-0.36); MONOCYTES PERCENT AUTO 7.5 % (4.7-12.5); NEUTROPHILS ABSOLUTE AUTO 5.16 K/mm3 (1.56-6.13); NEUTROPHILS PERCENT AUTO 58.2 % (34.0-71.1); PLATELET COUNT,PLT 326 K/mm3 (182-369); RED BLOOD CELL COUNT 4.43 M/mm3 (3.98-5.22); WHITE BLOOD CELL COUNT,WBC 8.88 K/mm3 (3.98-10.04)
[2022-11-11 11:15] LABS: ALBUMIN 3.5 g/dl (3.4-5.0); BILIRUBIN TOTAL 0.5 mg/dL (0.2-1.0); BUN/CREATININE RATIO 11.1 (14-18); CALCIUM 8.8 mg/dL (8.5-10.1); CREATININE 0.9 mg/dL (0.55-1.02); EST CRCL DRUG DOSING (CG) 91.31 mL/min; PROTEIN TOTAL,TP 7.2 g/dl (6.4-8.2)
[2022-11-11 12:05] VITALS: BP 116/56
[2022-11-11 12:06] VITALS: PULSE 54
== END 2022-11-11 12:03 | disposition home or self-care (01) ==
LOC: JD.ED 09:25
DX: N83.201 Unspecified ovarian cyst, right side (principal); F17.210 Nicotine dependence, cigarettes, uncomplicated; Z88.0 Allergy status to penicillin
CPT/HCPCS: 36415; 80053; 84703; 85025; 96374; 96375; 99284; J1170; J1885; J3490; J7030